=== PATIENT | male | born 1985 | race Caucasian/White ===

== ENCOUNTER 2020-04-28 07:40 | Emergency (ER) | payer MEDICAID ==
[~2020-04-28] VITALS: Ht 170.2 cm; Wt 64.9 kg
[2020-04-28 07:56] VITALS: Ht 170.2 cm; Wt 64.9 kg
[2020-04-28 08:30] LABS: BASOPHIL % 0.2 % (0-2); PLATELET COUNT 292 x10^3mcL (130-400); RED CELL DISTRIBUTION WIDTH 13.4 % (11.5-14.5)
[2020-04-28 08:37] LABS: UA SPECIFIC GRAVITY >=1.030 (1.005-1.035); microscopic required? YES; urine erythrocyte NEGATIVE (NEGATIVE)
[2020-04-28 08:39] LABS: ALBUMIN 4.2 g/dL (3.4-5.0); ALKALINE PHOSPHATASE 36 U/L (46-116); ALT/SGPT 35 U/L (16-63); AST/SGOT 14 U/L (15-37); BILIRUBIN TOTAL 0.63 mg/dL (0.20-1.00); CARBON DIOXIDE 28.1 mmol/L (21-32); CHLORIDE SERUM 104 mmol/L (98-107); CREATININE SERUM 1.1 mg/dL (0.7-1.3); GFR1 > 60 mL/min; GLUCOSE SERUM 108 mg/dL (74-106); LIPASE 167 IU/L (73-393); POTASSIUM SERUM 3.9 mmol/L (3.5-5.1); SODIUM SERUM 140 mmol/L (136-145); TOTAL PROTEIN, SERUM 7.3 g/dL (6.4-8.2)
[2020-04-28 09:23] LABS: AMPHETAMINE QUAL UR NONE DETECTED (See below)
[2020-04-28 11:11] VITALS: BP 117/67
== END 2020-04-28 11:11 | disposition home or self-care (01) ==
LOC: ED 07:40
PROVIDERS: Emergency Medicine
DX: R10.9 Unspecified abdominal pain (principal); R11.10 Vomiting, unspecified; R19.7 Diarrhea, unspecified
CPT/HCPCS: J2405; J3490; J7030; Q0092

== ENCOUNTER 2020-05-16 00:05 | Emergency (ER) | payer MEDICAID, SELFPAY ==
[~2020-05-16] VITALS: Ht 170.2 cm; Wt 70.3 kg
[2020-05-16 00:15] VITALS: Ht 170.2 cm; Wt 70.3 kg
[2020-05-16 02:13] VITALS: BP 133/75
== END 2020-05-16 02:13 | disposition home or self-care (01) ==
LOC: ED 00:05
DX: U07.1 COVID-19 (principal); F15.10 Other stimulant abuse, uncomplicated
CPT/HCPCS: U0003-CS